=== PATIENT | male | born 1990 | race Caucasian/White ===

== ENCOUNTER 2019-06-17 12:28 | Emergency (ER) | payer BC, OTHER ==
[~2019-06-17] VITALS: Ht 167.6 cm; Wt 79.4 kg
[2019-06-17 13:23] VITALS: BP_SYST 112
--- NOTE | 2019-06-17 13:50 | NUR ---
pt called no answer
--- NOTE | 2019-06-17 14:15 | NUR ---
pt called no answer
--- NOTE | 2019-06-17 14:50 | NUR ---
Pt called no answer [id number]
== END 2019-06-17 14:30 | disposition left against medical advice (07) ==
LOC: SED 12:28
DX: M54.2 Cervicalgia (principal); Z53.21 Procedure and treatment not carried out due to patient leaving prior to being seen by health care provider

== ENCOUNTER 2023-04-20 17:30 | Emergency (ER) | payer BC, OTHER ==
[~2023-04-20] VITALS: Ht 167.6 cm; Wt 83.9 kg
[2023-04-20 17:54] VITALS: BP_SYST 128; PULSE 77; RESP 18; TEMP 98; O2SAT 95
[2023-04-20 20:01] LABS: BILIRUBIN,URINE NEGATIVE (NEGATIVE); BLOOD, URINE NEGATIVE (NEGATIVE); CLARITY/URINE CLEAR (CLEAR); COLOR,URINE YELLOW (YELLOW); GLUCOSE,URINE NEGATIVE (NEGATIVE); KETONES,URINE NEGATIVE (NEGATIVE); LEUKOCYTE ESTERASE ,URINE NEGATIVE (NEGATIVE); NITRITE, URINE NEGATIVE (NEGATIVE); PROTEIN URINE NEGATIVE (NEGATIVE); UROBILINOGEN,URINE 0.2 (0.2-1.0)
[2023-04-20] MEDS ORDERED: ONDANSETRON HCL 4 MG/2 ML VIAL IVP ONE (20:45)
[2023-04-20] MEDS ORDERED: KETOROLAC TROMETHAMINE 30 MG VIAL IVP ONE (20:45)
[2023-04-20] MEDS ORDERED: NACL 0.9% 1,000 ML IV ONE (20:45)
[2023-04-20 21:01] LABS: BASOPHILS % (AUTO) 0.6 % (0.0-2.0); EOSINOPHILS # (AUTO) 0.1 K/uL (0.0-0.4); EOSINOPHILS % (AUTO) 1.8 % (0.0-4.0); HEMATOCRIT 46.2 % (36-54); LYMPHOCYTES # (AUTO) 2.5 K/uL (1.0-5.5); LYMPHOCYTES % (AUTO) 30.1 % (20.5-51.5); MEAN CORPUSCULAR HEMOGLOBIN 29 pg (27-31); MEAN CORPUSCULAR HGB CONC 35 % (32-36); MEAN CORPUSCULAR VOLUME 83 fL (79.0-98.0); MONOCYTES # (AUTO) 0.6 K/uL (0.0-1.0); MONOCYTES % (AUTO) 7.3 % (1.7-9.3); NEUTROPHILS # (AUTO) 5.1 K/uL (1.8-7.7); NEUTROPHILS % (AUTO) 60.2 % (40.0-70.0); PLATELET COUNT (AUTO) 235 K/uL (130-430); RED BLOOD CELL COUNT(AUTO) 5.55 MIL/uL (4.2-6.2); RED CELL DISTRIBUTION WIDTH 13.3 % (9.0-15.0); WHITE BLOOD COUNT (AUTO) 8.4 K/uL (4.8-10.8)
[2023-04-20 21:16] LABS: CREATININE 1.21 mg/dL (0.55-1.30); POTASSIUM 3.7 mmol/L (3.5-5.1)
[2023-04-20 21:21] LABS: ALBUMIN 3.9 g/dL (3.4-4.8); TOTAL BILIRUBIN 0.5 mg/dL (0.0-1.0); TOTAL PROTEIN, SERUM 7.4 g/dL (6.4-8.3)
[2023-04-20 22:35] VITALS: BP_SYST 134; PULSE 86; RESP 18; TEMP 98.2; O2SAT 98
[2023-04-20] MEDS ORDERED: ONDA-8 TL (22:49)
[2023-04-20] MEDS ORDERED: OMEP20CA15 PO (22:49)
[2023-04-20] MEDS ORDERED: DICL75TA5 PO (22:49)
== END 2023-04-20 22:37 | disposition home or self-care (01) ==
LOC: SED 17:30
DX: K63.89 Other specified diseases of intestine (principal); R11.2 Nausea with vomiting, unspecified; R10.11 Right upper quadrant pain; Z79.899 Other long term (current) drug therapy
CPT/HCPCS: 99285; 74176; 96374; 71045; 96361; 96375; 80053; 83690; 85025; 36415; 76376; 81003; J1885; J2405; J7030